=== PATIENT | male | born 1995 | race Caucasian/White ===

== ENCOUNTER 2019-03-26 09:39 | Emergency (ER) | payer BC ==
[~2019-03-26] VITALS: Ht 172.7 cm; Wt 93.0 kg
[~2019-03-26 09:39] MED LIST: CITA20 PO; FAMO20 PO; HYDACE5325 PO; Keflex500 MG PO; MULTCH; NAPR500 PO; TETR250 PO
[2019-07-07] MEDS ORDERED: IBUP800 PO (15:28)
== END 2019-03-26 11:12 | disposition home or self-care (01) ==
LOC: ER 09:39
DX: M76.52 Patellar tendinitis, left knee (principal); M22.42 Chondromalacia patellae, left knee
CPT/HCPCS: 73564; 99283-25